=== PATIENT | male | born 1950 | race Caucasian/White ===

== ENCOUNTER 2020-04-22 06:38 | Day surgery (SDC) | payer MEDICARE, BC ==
[2020-04-22] MEDS ORDERED: Midazolam 1 MG/ML 2 ML SDV IV ONE (06:39)
[2020-04-22] MEDS ORDERED: fentaNYL 100 MCG/2 ML SDV IV ONE (06:39)
[2020-04-22] MEDS ORDERED: Sodium Chloride 0.9% 10 ML Syringe FLUSH PRN (06:45)
[2020-04-22] MEDS ORDERED: Lactated Ringers 1,000 ML IV SCH (06:45)
[2020-04-22] MEDS ORDERED: acetaZOLAMIDE 500 MG Cap.ER PO ONE (08:15)
--- NOTE | 2020-04-23 10:00 | OR ---
DATE OF OPERATION: 04/22/2020 SURGEON: Sandy Paredes MD PREOPERATIVE DIAGNOSIS: Visually significant cataract, left eye. POSTOPERATIVE DIAGNOSIS: Visually significant cataract, left eye. PROCEDURES PERFORMED: Phacoemulsification with intraocular lens placement, left eye. ASSISTANTS: None. ANESTHESIA: Local with sedation. COMPLICATIONS: None. BLOOD LOSS: None. IMPLANTS: An Kyree ACU0T0, 18.5 diopter lens, serial number [id number] implanted. CDE: 8.20. DESCRIPTION OF PROCEDURE: After risks and benefits were reviewed with the patient, consent was obtained in the preoperative area, and the operative eye was marked with a surgical pen. In the preoperative area, a pledget was used to dilate the pupil consisting of a mixture of phenylephrine 10%, cyclopentolate 2%, moxifloxacin 0.5%, and bupivacaine 0.75%. The patient was taken to the operating room, where a time-out was performed, and the patient was placed under monitored anesthesia care. Topical tetracaine was used for anesthesia. The operative eye was prepped and draped for ophthalmic surgery, and the microscope was brought into position and focused. A paracentesis incision was made, followed by injection of preservative-free 1% lidocaine into the anterior chamber, followed by injection of Viscoat into the anterior chamber. A microkeratome blade was used to make a corneal limbal incision temporally. A cystotome was used to make the beginning of the capsulorrhexis, which was carried around 360 degrees in a curvilinear fashion using Utrata forceps. A Benavides cannula with BSS was used to hydrodissect and hydrodelineate the nucleus. The nucleus was removed in a divide and conquer manner using phacoemulsification. Irrigation and aspiration were used to remove the remaining cortical material. Provisc was used to inflate the capsular bag, and a pre-loaded Kyree ACU0T0, 18.5 diopter lens, serial number [id number] was injected into the capsular bag. A Sinskey hook was used to position and center the lens. Next, irrigation and aspiration was used to remove any remaining viscoelastic and cortical material from the anterior chamber. BSS on a cannula was used to inflate the anterior chamber and hydrate the wound. The wound was checked and found to be watertight. 1 mg of Moxifloxacin was injected into the anterior chamber. Drapes were removed and the eye was cleaned. A drop of brimonidine 0.15% and a drop of TobraDex was placed. The eye was shielded, and the patient was taken to the recovery room in stable condition. /[id number] MIRNA/NEREYDA
== END 2020-04-22 09:27 | disposition home or self-care (01) ==
LOC: FB.SDS 06:38
PROVIDERS: ATTEND Ophthalmology
DX: H25.812 Combined forms of age-related cataract, left eye (principal); I10 Essential (primary) hypertension; E78.5 Hyperlipidemia, unspecified; C61 Malignant neoplasm of prostate; H40.1131 Primary open-angle glaucoma, bilateral, mild stage; H35.363 Drusen (degenerative) of macula, bilateral; H52.223 Regular astigmatism, bilateral; Z98.41 Cataract extraction status, right eye; Z79.899 Other long term (current) drug therapy; Z95.810 Presence of automatic (implantable) cardiac defibrillator
CPT/HCPCS: 00142-QZ; A9270-GY; J2250; J3010; J7120; V2632